=== PATIENT | male | born 1945 | race Caucasian/White ===

== ENCOUNTER 2017-10-14 05:31 | Inpatient (IN) | payer MEDICARE, MEDICAID ==
[2017-10-11 15:57] LABS: BASOPHILS % (AUTO) 0.7 % (0-1); EOSINOPHILS # (AUTO) 0.1 X10'3 (0-0.9); EOSINOPHILS % (AUTO) 1.9 % (0-6); LYMPHOCYTES # (AUTO) 1.3 X10'3 (1.1-4.8); MEAN CORPUSCULAR HEMOGLOBIN 30.5 PG (27.0-31.0); MEAN CORPUSCULAR HGB CONC 34.2 % (33.0-36.5); MEAN CORPUSCULAR VOLUME 89.4 FL (78-98); MEAN PLATELET VOLUME 9.8 FL (7.4-10.4); MONOCYTES # (AUTO) 0.5 X10'3 (0-0.9); MONOCYTES % (AUTO) 8.7 % (2-12); NEUTROPHILS # (AUTO) 3.8 X10'3 (1.8-7.7); NEUTROPHILS % (AUTO) 65.7 % (42-75); PRE OP HEMATOCRIT 41.2 % (42.0-52.0); PRE OP HEMOGLOBIN 14.1 g/dL (14.0-17.9); PRE OP PLATELET COUNT 163 X10'3 (140-440); RED BLOOD COUNT 4.61 X10'6 (4.70-6.10); RED CELL DISTRIBUTION WIDTH 14.5 % (11.5-14.5)
[2017-10-11 16:05] LABS: PRE OP PROTIME 10.6 SECONDS (9.0-12.0)
[2017-10-11 16:06] LABS: HEMOGLOBIN A1C 5.3 % (4.5-6.2)
[2017-10-11 16:13] LABS: ALBUMIN 3.8 G/DL (3.4-5.0); ALBUMIN/GLOBULIN RATIO 1.1 (1.1-1.5); ALKALINE PHOSPHATASE 75 IU/L (46-116); BLOOD UREA NITROGEN 14 MG/DL (7-18); BUN/CREATININE RATIO 14.9 (5.4-32.0); CALCIUM 9.3 MG/DL (8.5-10.1); CHLORIDE 102 MMOL/L (99-107); CREATININE 0.94 MG/DL (0.60-1.10); PRE OP ALT 28 U/L (30-65); PRE OP ANION GAP 8 (8-16); PRE OP AST 20 U/L (10-37); PRE OP BILIRUB, TOTAL 0.6 MG/DL (0.0-1.0); PRE OP GLUCOSE 75 MG/DL (70-104); PRE OP POTASSIUM 3.8 MMOL/L (3.4-5.1); PRE OP SODIUM 141 MMOL/L (135-145); TOTAL CARBON DIOXIDE 30.8 MMOL/L (24-32); TOTAL PROTEIN 7.4 G/DL (6.4-8.2); eGFR 79 ML/MIN
[2017-10-11 16:18] LABS: CLARITY,URINE Clear (Clear); COLOR,URINE Yellow (Yellow); GLUCOSE, URINE Negative (Neg); KETONES,URINE Negative (Neg); LEUKOCYTE ESTERASE ,URINE Negative (Neg); NITRITES, URINE Negative (Neg); OCCULT BLOOD,URINE Negative (Neg); PROTEIN,URINE Negative (Neg)
[2017-10-11 16:20] LABS: UA COLLECTION TYPE CLN CATCH MIDSTREAM
[2017-10-14] VITALS (21 sets, daily range): BP systolic 98–132; BP diastolic 50–73
[~2017-10-14] VITALS: Ht 175.3 cm; Wt 90.3 kg
[~2017-10-14 05:31] MED LIST: AMLO10TA4 PO; ASPI81TA52 PO; ATOR20TA PO; DOCUMENT DATE & TIME OF BETA-BLOCKER PO ONE; HYDR25TA4 PO; METO-539 PO; NITR0.4T51 SL; VANCOMYCIN INJ 1000 MG in NORMAL SALINE 250ml IV.SOLN IV ONE; cefazolin/dext.iso 2gm/50ml 50 ML IV ONE; famotidine 20mg tablet PO ONE; ringers solution, lacted 1,000 ML IV SCH
[2017-10-14 05:35] LABS: ABG BASE EXCESS 2.9 mmol/L (-2.0-3.0); ABG HCO3 26.2 mmol/L (22.0-26.0); ABG OXYGEN SATURATION 97.4 % (95-98); ABG PCO2 (T) 36.2 mmHg (35.0-48.0); ABG PH (T) 7.477 (7.350-7.450); ABG PO2 (T) 88.8 mmHg (83-108); ALLEN'S TEST Positive; FCOHb 0.6 % (0.5-1.5); FMetHb 0.1 % (0.3-1.12); FO2Hb 96.7 % (94-100); TOTAL HEMOGLOBIN 14.9 G/dl (14.0-18.0)
[2017-10-14] MEDS ORDERED: insulin regular, human 100 UNITS in normal saline 100ml IV soln 99 ML IV SCH ×2 (06:00)
[2017-10-14] MEDS ORDERED: LORazepam 2 mg/ml vial IV ONE (06:00)
[2017-10-14] MEDS ORDERED: LIDOcaine 1% (10mg/ml) 2ml vial ONE (06:07)
[2017-10-14] MEDS ORDERED: metoprolol tartrate 12.5mg (1/2 tablet) PO ONE (06:30)
[2017-10-14] MEDS ORDERED: papaverine 30 mg/ml 2ml inj. IA ONE (06:30)
[2017-10-14] MEDS ORDERED: heparin 10,000 units/1 ML INJ IR ONE (06:30)
[2017-10-14] MEDS: mupirocin 2% ointment 22GM TP SCH ×2 (06:31→08:00)
[2017-10-14] MEDS ORDERED: propofol inj 20 ML IV ONE (07:01)
[2017-10-14] MEDS ORDERED: rocuronium 10mg/ml inj IV ONE ×4 (07:01→11:39)
[2017-10-14] MEDS ORDERED: MIDAZolam 1mg/ml 10ml vial ONE (07:01)
[2017-10-14] MEDS ORDERED: SUFENTANIL CITRATE 50 MCG/ML 2ml ampule IV ONE (07:01)
[2017-10-14] MEDS ORDERED: DOPamine/D5W 400mg/250ml bag IV ONE (07:02)
[2017-10-14] MEDS ORDERED: niCARdipine 2.5mg/ml inj IV ONE (07:02)
[2017-10-14] MEDS ORDERED: papaverine 30 mg/ml 2ml inj. ONE (07:02)
[2017-10-14] MEDS ORDERED: sevoflurane 250ml liquid IH ONE (07:02)
[2017-10-14] MEDS ORDERED: heparin 10,000 units/1 ML INJ ONE ×2 (07:02→08:00)
[2017-10-14] MEDS ORDERED: aminocaproic acid 250 MG/1 ML inj. ONE ×2 (07:02→08:00)
[2017-10-14] MEDS ORDERED: methylPREDNISolone sod. succ. 500mg inj ONE (08:00)
[2017-10-14] MEDS ORDERED: LIDOcaine 2% (20 mg/ml) 5ml cardiac syringe ONE (08:00)
[2017-10-14] MEDS ORDERED: heparin 1,000 units/ml 10ml inj ONE (08:00)
[2017-10-14] MEDS ORDERED: sodium bicarbonate (8.4%) 1 mEq/ml syringe ONE (08:00)
[2017-10-14] MEDS ORDERED: potassium Cl 2 mEq/ml inj IV ONE (08:00)
[2017-10-14] MEDS ORDERED: phenylephrine 10mg/ml inj IV ONE (08:00)
[2017-10-14] MEDS ORDERED: albumin (human) 25% 100 ML IV solution IV ONE (08:00)
[2017-10-14] MEDS ORDERED: magnesium 1 GM/2 ML inj ONE (08:00)
[2017-10-14] MEDS ORDERED: calcium chloride 100 MG/1 ML inj IV ONE (08:00)
[2017-10-14 08:25] LABS: ABG BASE EXCESS 0.9 mmol/L (-2.0-3.0); ABG HCO3 25.9 mmol/L (22.0-26.0); ABG OXYGEN SATURATION 98.7 % (95-98); ABG PCO2 42.6 mmHg (35.0-45.0); ABG PH 7.401 (7.350-7.450); ABG PO2 158.8 mmHg (60.0-100.0); CL (ABG) 103 mmol/L (99-107); FCOHb 0.3 % (0.5-1.5); FO2Hb 98.4 % (94-100); GLUCOSE (ABG) 108 mg/dl (70-105); IONIZED CA (ABG) 1.13 mmol/L (1.03-1.32); K (ABG) 3.4 mmol/L (3.3-5.1); NA (ABG) 137 mmol/L (135-145); TOTAL HEMOGLOBIN 12.4 G/dl (14.0-18.0)
[2017-10-14 09:35] LABS: ABG BASE EXCESS 1.6 mmol/L (-2.0-3.0); ABG HCO3 24.4 mmol/L (22.0-26.0); ABG OXYGEN SATURATION 99.1 % (95-98); ABG PCO2 32.2 mmHg (35.0-45.0); ABG PH 7.498 (7.350-7.450); ABG PO2 385.9 mmHg (60.0-100.0); CL (ABG) 104 mmol/L (99-107); FCOHb 0.2 % (0.5-1.5); FMetHb 0.2 % (0.3-1.12); FO2Hb 98.7 % (94-100); GLUCOSE (ABG) 103 mg/dl (70-105); IONIZED CA (ABG) 1.02 mmol/L (1.03-1.32); K (ABG) 4.7 mmol/L (3.3-5.1); NA (ABG) 135 mmol/L (135-145); TOTAL HEMOGLOBIN 10.2 G/dl (14.0-18.0)
[2017-10-14 09:46] LABS: ACT @ 1.70 U 321 SEC (193-297); ACT @ 2.84 U 435 SEC (260-420); BASELINE ACT 150 SEC (101-148); PATIENT WEIGHT 82.0k KG
[2017-10-14 10:15] LABS: ABG BASE EXCESS VENOUS 1.2 mmol/L; ABG HCO3 VENOUS 25.7 mmol/L; ABG PCO2 VENOUS 39.9 mmHg; ABG PO2 VENOUS 63.8 mmHg; CL (ABG) 105 mmol/L (99-107); FCOHb VENOUS 0.3 %; FHHb VENOUS 8.1 %; FMetHb VENOUS 0.4 %; FO2Hb VENOUS 91.2 %; GLUCOSE (ABG) 129 mg/dl (70-105); IONIZED CA (ABG) 1.07 mmol/L (1.03-1.32); K (ABG) 4.6 mmol/L (3.3-5.1); NA (ABG) 135 mmol/L (135-145); TOTAL HEMOGLOBIN 10.6 G/dl (14.0-18.0)
[2017-10-14 10:45] LABS: ABG BASE EXCESS -0.2 mmol/L (-2.0-3.0); ABG HCO3 26.7 mmol/L (22.0-26.0); ABG OXYGEN SATURATION 98.9 % (95-98); ABG PCO2 54.4 mmHg (35.0-45.0); ABG PH 7.308 (7.350-7.450); ABG PO2 283.8 mmHg (60.0-100.0); CL (ABG) 105 mmol/L (99-107); FCOHb 0.3 % (0.5-1.5); FMetHb 0.4 % (0.3-1.12); FO2Hb 98.2 % (94-100); GLUCOSE (ABG) 168 mg/dl (70-105); K (ABG) 4.7 mmol/L (3.3-5.1); NA (ABG) 136 mmol/L (135-145); TOTAL HEMOGLOBIN 10.8 G/dl (14.0-18.0)
[2017-10-14 11:05] LABS: ABG BASE EXCESS -2.8 mmol/L (-2.0-3.0); ABG HCO3 21.2 mmol/L (22.0-26.0); ABG OXYGEN SATURATION 98.9 % (95-98); ABG PCO2 34.1 mmHg (35.0-45.0); ABG PH 7.412 (7.350-7.450); ABG PO2 309.4 mmHg (60.0-100.0); CL (ABG) 104 mmol/L (99-107); FCOHb 0.3 % (0.5-1.5); FMetHb 0.4 % (0.3-1.12); FO2Hb 98.2 % (94-100); GLUCOSE (ABG) 167 mg/dl (70-105); IONIZED CA (ABG) 1.07 mmol/L (1.03-1.32); K (ABG) 4.6 mmol/L (3.3-5.1); NA (ABG) 133 mmol/L (135-145); TOTAL HEMOGLOBIN 10.3 G/dl (14.0-18.0)
[2017-10-14 11:36] LABS: ABG HCO3 22.7 mmol/L (22.0-26.0); ABG OXYGEN SATURATION 98.8 % (95-98); ABG PCO2 33.9 mmHg (35.0-45.0); ABG PH 7.443 (7.350-7.450); ABG PO2 244.1 mmHg (60.0-100.0); CL (ABG) 104 mmol/L (99-107); FCOHb 0.3 % (0.5-1.5); FMetHb 0.6 % (0.3-1.12); FO2Hb 97.9 % (94-100); GLUCOSE (ABG) 167 mg/dl (70-105); IONIZED CA (ABG) 1.09 mmol/L (1.03-1.32); K (ABG) 4.3 mmol/L (3.3-5.1); NA (ABG) 137 mmol/L (135-145); TOTAL HEMOGLOBIN 10.4 G/dl (14.0-18.0)
[2017-10-14] MEDS ORDERED: ceFAZolin 1000mg inj ONE (11:39)
[2017-10-14 12:01] LABS: ABG BASE EXCESS 3.6 mmol/L (-2.0-3.0); ABG HCO3 27.4 mmol/L (22.0-26.0); ABG PCO2 38.2 mmHg (35.0-45.0); ABG PH 7.473 (7.350-7.450); ABG PO2 140.6 mmHg (60.0-100.0); CL (ABG) 103 mmol/L (99-107); FCOHb 0.3 % (0.5-1.5); FMetHb 0.5 % (0.3-1.12); FO2Hb 97.2 % (94-100); GLUCOSE (ABG) 162 mg/dl (70-105); IONIZED CA (ABG) 1.24 mmol/L (1.03-1.32); K (ABG) 4.3 mmol/L (3.3-5.1); NA (ABG) 137 mmol/L (135-145); TOTAL HEMOGLOBIN 9.6 G/dl (14.0-18.0)
[2017-10-14 12:31] LABS: ABG BASE EXCESS VENOUS 1.6 mmol/L; ABG HCO3 VENOUS 26.3 mmol/L; ABG PCO2 VENOUS 41.5 mmHg; ABG PO2 VENOUS 52.6 mmHg; CL (ABG) 106 mmol/L (99-107); FCOHb VENOUS 0.3 %; FHHb VENOUS 14.3 %; FMetHb VENOUS 0.6 %; FO2Hb VENOUS 84.8 %; GLUCOSE (ABG) 145 mg/dl (70-105); IONIZED CA (ABG) 1.24 mmol/L (1.03-1.32); K (ABG) 3.8 mmol/L (3.3-5.1); NA (ABG) 138 mmol/L (135-145)
[2017-10-14 12:46] LABS: ACTIVATED CLOTTING TIME 110 SEC (101-148)
[2017-10-14] MEDS: niCARDipine/sod cl 20mg/200ml 200 ML IV SCH ×3 (13:22→20:59)
[2017-10-14] MEDS ORDERED: nitroGLYCERIN-Tridil 50MG/D5W 250 ML IV PRN (13:22)
[2017-10-14] MEDS ORDERED: DOPamine 400mg/D5W 250ml 250 ML IV PRN (13:22)
[2017-10-14] MEDS ORDERED: normal saline 250ml IV soln 250 ML IV PRN (13:25)
[2017-10-14] MEDS ORDERED: sodium phosphate inj. 30 MMOL in dextrose 5%-water 250 ML IV PRN (13:25)
[2017-10-14] MEDS ORDERED: dextrose 50%-water 50ml dispensing syringe IV PRN (13:25)
[2017-10-14] MEDS ORDERED: ondansetron/PF 4mg/2ml inj IV PRN (13:25)
[2017-10-14] MEDS ORDERED: sodium phosphate inj. 15 MMOL in dextrose 5%-water 150 ML IV PRN (13:25)
[2017-10-14] MEDS ORDERED: acetaminophen 325mg tablet PO PRN (13:25)
[2017-10-14] MEDS: insulin regular, human inj. 100 UNITS in normal saline 100ml IV soln 100 ML IV SCH ×2 (13:25)
[2017-10-14] MEDS ORDERED: metoclopramide 5 mg/ml inj IV PRN (13:25)
[2017-10-14] MEDS ORDERED: Neutra Phos packet PO PRN (13:25)
[2017-10-14] MEDS ORDERED: magnesium 4gm in 100ml NS 100 ML IV PRN (13:25)
[2017-10-14] MEDS ORDERED: magnesium hydroxide 30ml (MOM) UD suspension PO PRN (13:25)
[2017-10-14 13:41] LABS: ABG BASE EXCESS -1.3 mmol/L (-2.0-3.0); ABG OXYGEN SATURATION 95.5 % (95-98); ABG PCO2 (T) 31.1 mmHg (35.0-48.0); ABG PH (T) 7.463 (7.350-7.450); FCOHb 0.3 % (0.5-1.5); FMetHb 0.1 % (0.3-1.12); FO2Hb 95.1 % (94-100); PATIENT TEMPERATURE 36.1; PEEP 5 cm H2O; RESPIRATORY RATE 12 b/min; TIDAL VOLUME 600 mL; TOTAL HEMOGLOBIN 12.8 G/dl (14.0-18.0)
[2017-10-14 13:47] LABS: BASOPHILS % (AUTO) 0.1 % (0-1); EOSINOPHILS # (AUTO) 0.1 X10'3 (0-0.9); EOSINOPHILS % (AUTO) 1.3 % (0-6); HEMOGLOBIN 12.4 g/dl (14.0-17.9); LYMPHOCYTES # (AUTO) 0.5 X10'3 (1.1-4.8); MEAN CORPUSCULAR HEMOGLOBIN 30.6 PG (27.0-31.0); MEAN CORPUSCULAR HGB CONC 34.3 % (33.0-36.5); MEAN CORPUSCULAR VOLUME 89.3 FL (78-98); MONOCYTES # (AUTO) 0.3 X10'3 (0-0.9); MONOCYTES % (AUTO) 3.2 % (2-12); NEUTROPHILS % (AUTO) 90.4 % (42-75); PLATELET COUNT 99 X10'3 (140-440); RED BLOOD COUNT 4.03 X10'6 (4.70-6.10); RED CELL DISTRIBUTION WIDTH 14.4 % (11.5-14.5); WHITE BLOOD COUNT 9.9 X10'3 (4.5-11.0)
[2017-10-14 14:02] LABS: ALANINE AMINOTRANSFERASE 24 U/L (12-78); ALBUMIN 2.8 G/DL (3.4-5.0); ALBUMIN/GLOBULIN RATIO 1.2 (1.1-1.5); ALKALINE PHOSPHATASE 55 IU/L (46-116); ANION GAP 7 (8-16); ASPARTATE AMINO TRANSFERASE 48 U/L (10-37); BILIRUBIN,TOTAL 0.6 MG/DL (0.1-1.0); BLOOD UREA NITROGEN 24 MG/DL (7-18); BUN/CREATININE RATIO 23.8 (5.4-32.0); CALCIUM 9.9 MG/DL (8.5-10.1); CHLORIDE 111 MMOL/L (99-107); CREATININE 1.01 MG/DL (0.60-1.10); GLUCOSE 117 MG/DL (70-104); MAGNESIUM 2.9 MG/DL (1.5-2.4); POTASSIUM 3.2 MMOL/L (3.5-5.1); SODIUM 146 MMOL/L (135-145); TOTAL CARBON DIOXIDE 27.6 MMOL/L (24-32); TOTAL PROTEIN 5.1 G/DL (6.4-8.2); eGFR 72 ML/MIN
[2017-10-14] MEDS: albumin (Human) 5% 250ml 250 ML IV PRN ×3 (14:30→16:37)
[2017-10-14] MEDS: sodium chloride 0.45% 1,000 ML IV SCH (14:31)
[2017-10-14] MEDS: morphine sulfate 8 MG/ML SYRINGE IV PRN ×4 (15:48→23:05)
[2017-10-14] MEDS: CEFAZOLIN SODIUM/NORMAL SALINE 100 ML IV SCH (16:15)
[2017-10-14 16:45] LABS: INR 1.2 INR; PARTIAL THROMBOPLASTIN TIME 28 SECONDS (22-32)
[2017-10-14] MEDS: insulin Lispro (HumaLOG) vial - multi-dose SQ SCH (16:53)
[2017-10-14 17:16] LABS: BASOPHILS % (AUTO) 0 % (0-1); EOSINOPHILS # (AUTO) 0.2 X10'3 (0-0.9); EOSINOPHILS % (AUTO) 1.8 % (0-6); HEMATOCRIT 31.3 % (42.0-52.0); HEMOGLOBIN 10.6 g/dl (14.0-17.9); LYMPHOCYTES # (AUTO) 0.5 X10'3 (1.1-4.8); LYMPHOCYTES % (AUTO) 3.8 % (21-51); MEAN CORPUSCULAR HEMOGLOBIN 30.3 PG (27.0-31.0); MEAN CORPUSCULAR HGB CONC 33.9 % (33.0-36.5); MEAN CORPUSCULAR VOLUME 89.3 FL (78-98); MEAN PLATELET VOLUME 8.9 FL (7.4-10.4); MONOCYTES # (AUTO) 0.6 X10'3 (0-0.9); MONOCYTES % (AUTO) 4.9 % (2-12); NEUTROPHILS # (AUTO) 10.7 X10'3 (1.8-7.7); NEUTROPHILS % (AUTO) 89.5 % (42-75); PLATELET COUNT 94 X10'3 (140-440); RED CELL DISTRIBUTION WIDTH 14.2 % (11.5-14.5); WHITE BLOOD COUNT 11.9 X10'3 (4.5-11.0)
[2017-10-14 17:46] LABS: INR 1.2 INR; PARTIAL THROMBOPLASTIN TIME 28 SECONDS (22-32)
[2017-10-14] MEDS: potassium Cl 20mEq/100mL bag 100 ML IV PRN ×3 (18:40→23:17)
[2017-10-14] MEDS: docusate sod 100mg capsule PO SCH (20:00)
[2017-10-14] MEDS: vancomycin/NS 1 GM ADD-VANTAGE 250 ML IV SCH (20:01)
[2017-10-14] MEDS: mupirocin 2% ointment 22GM NS SCH (20:01)
[2017-10-14 20:24] LABS: BASOPHILS % (AUTO) 0 % (0-1); EOSINOPHILS # (AUTO) 0.1 X10'3 (0-0.9); EOSINOPHILS % (AUTO) 1.5 % (0-6); HEMATOCRIT 25.9 % (42.0-52.0); HEMOGLOBIN 8.8 g/dl (14.0-17.9); LYMPHOCYTES # (AUTO) 0.3 X10'3 (1.1-4.8); LYMPHOCYTES % (AUTO) 2.5 % (21-51); MEAN CORPUSCULAR HEMOGLOBIN 30.6 PG (27.0-31.0); MEAN PLATELET VOLUME 7.9 FL (7.4-10.4); MONOCYTES # (AUTO) 0.4 X10'3 (0-0.9); MONOCYTES % (AUTO) 4.4 % (2-12); NEUTROPHILS # (AUTO) 9.3 X10'3 (1.8-7.7); NEUTROPHILS % (AUTO) 91.6 % (42-75); PLATELET COUNT 124 X10'3 (140-440); RED BLOOD COUNT 2.88 X10'6 (4.70-6.10); RED CELL DISTRIBUTION WIDTH 14.3 % (11.5-14.5); WHITE BLOOD COUNT 10.1 X10'3 (4.5-11.0)
[2017-10-14 20:31] LABS: ALBUMIN 3.3 G/DL (3.4-5.0); ANION GAP 12 (8-16); BLOOD UREA NITROGEN 22 MG/DL (7-18); BUN/CREATININE RATIO 18.8 (5.4-32.0); CALCIUM 8.3 MG/DL (8.5-10.1); CHLORIDE 114 MMOL/L (99-107); CREATININE 1.17 MG/DL (0.60-1.10); GLUCOSE 164 MG/DL (70-104); PHOSPHORUS 2.8 MG/DL (2.3-4.5); POTASSIUM 3.8 MMOL/L (3.5-5.1); SODIUM 149 MMOL/L (135-145); TOTAL CARBON DIOXIDE 23.3 MMOL/L (24-32); eGFR 61 ML/MIN
[2017-10-15] VITALS (25 sets, daily range): BP systolic 100–134; BP diastolic 50–71
[2017-10-15] MEDS: niCARDipine/sod cl 20mg/200ml 200 ML IV SCH ×6 (01:22→21:22)
[2017-10-15 02:12] LABS: INR 1.1 INR; PARTIAL THROMBOPLASTIN TIME 26 SECONDS (22-32); PROTHROMBIN TIME 10.9 SECONDS (9.0-12.0)
[2017-10-15 02:13] LABS: BASOPHILS % (AUTO) 0 % (0-1); EOSINOPHILS % (AUTO) 0 % (0-6); HEMATOCRIT 24.3 % (42.0-52.0); HEMOGLOBIN 8.6 g/dl (14.0-17.9); LYMPHOCYTES # (AUTO) 0.3 X10'3 (1.1-4.8); LYMPHOCYTES % (AUTO) 3.5 % (21-51); MEAN CORPUSCULAR HEMOGLOBIN 31.6 PG (27.0-31.0); MEAN CORPUSCULAR HGB CONC 35.5 % (33.0-36.5); MEAN PLATELET VOLUME 8.9 FL (7.4-10.4); MONOCYTES # (AUTO) 0.6 X10'3 (0-0.9); MONOCYTES % (AUTO) 6.5 % (2-12); NEUTROPHILS # (AUTO) 8.8 X10'3 (1.8-7.7); PLATELET COUNT 107 X10'3 (140-440); RED BLOOD COUNT 2.73 X10'6 (4.70-6.10); RED CELL DISTRIBUTION WIDTH 13.8 % (11.5-14.5); WHITE BLOOD COUNT 9.7 X10'3 (4.5-11.0)
[2017-10-15 02:18] LABS: ALANINE AMINOTRANSFERASE 25 U/L (12-78); ALBUMIN 3.2 G/DL (3.4-5.0); ALBUMIN/GLOBULIN RATIO 1.3 (1.1-1.5); ALKALINE PHOSPHATASE 37 IU/L (46-116); ANION GAP 5 (8-16); ASPARTATE AMINO TRANSFERASE 64 U/L (10-37); BILIRUBIN,TOTAL 0.5 MG/DL (0.1-1.0); BLOOD UREA NITROGEN 23 MG/DL (7-18); BUN/CREATININE RATIO 26.7 (5.4-32.0); CALCIUM 8.3 MG/DL (8.5-10.1); CHLORIDE 116 MMOL/L (99-107); CREATININE 0.86 MG/DL (0.60-1.10); GLUCOSE 127 MG/DL (70-104); MAGNESIUM 2.8 MG/DL (1.5-2.4); PHOSPHORUS 2.7 MG/DL (2.3-4.5); SODIUM 149 MMOL/L (135-145); TOTAL CARBON DIOXIDE 28.2 MMOL/L (24-32); TOTAL PROTEIN 5.6 G/DL (6.4-8.2); eGFR 87 ML/MIN
[2017-10-15] MEDS ORDERED: potassium Cl 20mEq/100mL bag 200 ML IV ONE (02:58)
[2017-10-15 05:11] LABS: ABG BASE EXCESS -3.3 mmol/L (-2.0-3.0); ABG OXYGEN SATURATION 95.1 % (95-98); ABG PCO2 (T) 35.6 mmHg (35.0-48.0); ABG PH (T) 7.391 (7.350-7.450); ABG PO2 (T) 88.9 mmHg (83-108); FCOHb 0.3 % (0.5-1.5); FMetHb 0.1 % (0.3-1.12); FO2Hb 94.7 % (94-100); MINUTE VOLUME 8 L/min; PATIENT TEMPERATURE 37.4; PEEP 5 cm H2O; RESPIRATORY RATE (OBSERVED) 12 b/min; TOTAL HEMOGLOBIN 8.8 G/dl (14.0-18.0)
[2017-10-15] MEDS: CEFAZOLIN SODIUM/NORMAL SALINE 100 ML IV SCH ×3 (07:12→15:36)
[2017-10-15] MEDS: mupirocin 2% ointment 22GM NS SCH ×2 (07:12→20:39)
[2017-10-15] MEDS: pantoprazole 40mg Tablet.DR PO SCH (07:12)
[2017-10-15] MEDS: atorvastatin 10mg tablet PO SCH (07:12)
[2017-10-15] MEDS: aspirin 325mg tablet, delayed-release (Ecotrin) PO SCH (07:13)
[2017-10-15] MEDS: docusate sod 100mg capsule PO SCH ×2 (07:13→20:39)
[2017-10-15] MEDS: metoprolol tartrate 12.5mg (1/2 tablet) PO SCH ×2 (08:00→20:00)
[2017-10-15] MEDS: HYDROcodone/acetaminophen 10/325mg tab PO PRN ×2 (08:07→13:10)
[2017-10-15] MEDS: vancomycin/NS 1 GM ADD-VANTAGE 250 ML IV SCH ×2 (08:08→20:39)
[2017-10-15 08:38] LABS: MAGNESIUM 2.4 MG/DL (1.5-2.4); POTASSIUM 4.2 MMOL/L (3.5-5.1)
[2017-10-15] MEDS: insulin Lispro (HumaLOG) vial - multi-dose SQ SCH (09:25)
[2017-10-15] MEDS: magnesium 2GM in 50ml NS 50 ML IV PRN (10:06)
[2017-10-15] MEDS: potassium Cl 20mEq/100mL bag 100 ML IV PRN ×2 (11:57→15:35)
[2017-10-15] MEDS: insulin regular, human inj. 100 UNITS in normal saline 100ml IV soln 100 ML IV SCH ×2 (12:19)
[2017-10-15 14:25] LABS: MAGNESIUM 2.8 MG/DL (1.5-2.4); POTASSIUM 4.1 MMOL/L (3.5-5.1)
[2017-10-15] MEDS: lactobacillus rhamnosus 10,000 MMU CELLS/CAPSULE PO SCH (17:20)
[2017-10-16] VITALS (24 sets, daily range): BP systolic 92–141; BP diastolic 55–82
[2017-10-16] MEDS: HYDROcodone/acetaminophen 10/325mg tab PO PRN ×5 (00:30→21:58)
[2017-10-16] MEDS: CEFAZOLIN SODIUM/NORMAL SALINE 100 ML IV SCH (00:33)
[2017-10-16] MEDS: niCARDipine/sod cl 20mg/200ml 200 ML IV SCH ×6 (01:22→21:22)
[2017-10-16 04:46] LABS: BASOPHILS % (AUTO) 0.1 % (0-1); EOSINOPHILS # (AUTO) 0.1 X10'3 (0-0.9); EOSINOPHILS % (AUTO) 1.4 % (0-6); HEMOGLOBIN 7.3 g/dl (14.0-17.9); LYMPHOCYTES # (AUTO) 0.5 X10'3 (1.1-4.8); LYMPHOCYTES % (AUTO) 6.3 % (21-51); MEAN CORPUSCULAR HEMOGLOBIN 30.7 PG (27.0-31.0); MEAN CORPUSCULAR VOLUME 90.4 FL (78-98); MONOCYTES # (AUTO) 0.8 X10'3 (0-0.9); MONOCYTES % (AUTO) 9.5 % (2-12); NEUTROPHILS # (AUTO) 6.8 X10'3 (1.8-7.7); NEUTROPHILS % (AUTO) 82.7 % (42-75); PLATELET COUNT 76 X10'3 (140-440); RED BLOOD COUNT 2.38 X10'6 (4.70-6.10); RED CELL DISTRIBUTION WIDTH 15.5 % (11.5-14.5); WHITE BLOOD COUNT 8.2 X10'3 (4.5-11.0)
[2017-10-16 04:56] LABS: ALBUMIN 2.8 G/DL (3.4-5.0); ANION GAP 3 (8-16); BLOOD UREA NITROGEN 25 MG/DL (7-18); BUN/CREATININE RATIO 30.9 (5.4-32.0); CALCIUM 7.9 MG/DL (8.5-10.1); CHLORIDE 111 MMOL/L (99-107); CREATININE 0.81 MG/DL (0.60-1.10); GLUCOSE 135 MG/DL (70-104); MAGNESIUM 2.4 MG/DL (1.5-2.4); PHOSPHORUS 2.5 MG/DL (2.3-4.5); POTASSIUM 4.2 MMOL/L (3.5-5.1); SODIUM 143 MMOL/L (135-145); TOTAL CARBON DIOXIDE 29.4 MMOL/L (24-32); eGFR > 90 ML/MIN
[2017-10-16 04:59] LABS: HEMATOCRIT 21.5 % (42.0-52.0)
[2017-10-16] MEDS: potassium Cl 20mEq/100mL bag 100 ML IV PRN ×4 (07:16→22:42)
[2017-10-16] MEDS: docusate sod 100mg capsule PO SCH ×2 (07:17→20:08)
[2017-10-16] MEDS: atorvastatin 10mg tablet PO SCH (07:17)
[2017-10-16] MEDS: lactobacillus rhamnosus 10,000 MMU CELLS/CAPSULE PO SCH ×2 (07:17→17:25)
[2017-10-16] MEDS: aspirin 325mg tablet, delayed-release (Ecotrin) PO SCH (07:17)
[2017-10-16] MEDS: metoprolol tartrate 12.5mg (1/2 tablet) PO SCH ×2 (07:17→20:08)
[2017-10-16] MEDS: mupirocin 2% ointment 22GM NS SCH (07:18)
[2017-10-16] MEDS: pantoprazole 40mg Tablet.DR PO SCH (07:18)
[2017-10-16] MEDS ORDERED: furosemide 40mg/4ml inj IV ONE (07:20)
[2017-10-16 09:57] LABS: HEMATOCRIT 27.1 % (42.0-52.0); HEMOGLOBIN 9.1 g/dl (14.0-17.9); MEAN CORPUSCULAR HEMOGLOBIN 30.1 PG (27.0-31.0); MEAN CORPUSCULAR HGB CONC 33.6 % (33.0-36.5); MEAN CORPUSCULAR VOLUME 89.5 FL (78-98); MEAN PLATELET VOLUME 9.3 FL (7.4-10.4); PLATELET COUNT 101 X10'3 (140-440); RED BLOOD COUNT 3.03 X10'6 (4.70-6.10); RED CELL DISTRIBUTION WIDTH 14.9 % (11.5-14.5); WHITE BLOOD COUNT 11.3 X10'3 (4.5-11.0)
[2017-10-16] MEDS: sodium chloride 0.45% 1,000 ML IV SCH (13:22)
[2017-10-16] MEDS: insulin regular, human inj. 100 UNITS in normal saline 100ml IV soln 100 ML IV SCH ×2 (13:23)
[2017-10-17] VITALS (24 sets, daily range): BP systolic 95–135; BP diastolic 57–75
[2017-10-17] MEDS: niCARDipine/sod cl 20mg/200ml 200 ML IV SCH ×6 (01:22→21:22)
[2017-10-17 02:49] LABS: BASOPHILS % (AUTO) 0.3 % (0-1); EOSINOPHILS # (AUTO) 0.1 X10'3 (0-0.9); EOSINOPHILS % (AUTO) 1.2 % (0-6); HEMATOCRIT 23.9 % (42.0-52.0); HEMOGLOBIN 8.2 g/dl (14.0-17.9); LYMPHOCYTES # (AUTO) 0.8 X10'3 (1.1-4.8); LYMPHOCYTES % (AUTO) 9.6 % (21-51); MEAN CORPUSCULAR HEMOGLOBIN 30.5 PG (27.0-31.0); MEAN CORPUSCULAR HGB CONC 34.1 % (33.0-36.5); MEAN CORPUSCULAR VOLUME 89.4 FL (78-98); MEAN PLATELET VOLUME 9.6 FL (7.4-10.4); MONOCYTES # (AUTO) 0.8 X10'3 (0-0.9); MONOCYTES % (AUTO) 9.3 % (2-12); NEUTROPHILS # (AUTO) 6.8 X10'3 (1.8-7.7); NEUTROPHILS % (AUTO) 79.6 % (42-75); PLATELET COUNT 75 X10'3 (140-440); RED BLOOD COUNT 2.67 X10'6 (4.70-6.10); RED CELL DISTRIBUTION WIDTH 15.5 % (11.5-14.5); WHITE BLOOD COUNT 8.6 X10'3 (4.5-11.0)
[2017-10-17 02:59] LABS: ALBUMIN 2.7 G/DL (3.4-5.0); ANION GAP 5 (8-16); BLOOD UREA NITROGEN 23 MG/DL (7-18); BUN/CREATININE RATIO 30.7 (5.4-32.0); CALCIUM 7.8 MG/DL (8.5-10.1); CHLORIDE 107 MMOL/L (99-107); CREATININE 0.75 MG/DL (0.60-1.10); GLUCOSE 107 MG/DL (70-104); MAGNESIUM 2.1 MG/DL (1.5-2.4); PHOSPHORUS 2.1 MG/DL (2.3-4.5); POTASSIUM 4.3 MMOL/L (3.5-5.1); SODIUM 139 MMOL/L (135-145); TOTAL CARBON DIOXIDE 26.8 MMOL/L (24-32); eGFR > 90 ML/MIN
[2017-10-17] MEDS: potassium Cl 20mEq/100mL bag 100 ML IV ONE ×2 (03:23→03:25)
[2017-10-17] MEDS: potassium Cl 20mEq/100mL bag 100 ML IV PRN ×3 (03:26→22:25)
[2017-10-17] MEDS: lactobacillus rhamnosus 10,000 MMU CELLS/CAPSULE PO SCH ×2 (08:19→17:50)
[2017-10-17] MEDS: docusate sod 100mg capsule PO SCH ×2 (08:19→20:20)
[2017-10-17] MEDS: metoprolol tartrate 12.5mg (1/2 tablet) PO SCH ×2 (08:19→20:20)
[2017-10-17] MEDS: pantoprazole 40mg Tablet.DR PO SCH (08:19)
[2017-10-17] MEDS: atorvastatin 10mg tablet PO SCH (08:19)
[2017-10-17] MEDS: aspirin 325mg tablet, delayed-release (Ecotrin) PO SCH (08:20)
[2017-10-17] MEDS: insulin regular, human inj. 100 UNITS in normal saline 100ml IV soln 100 ML IV SCH ×2 (13:25)
[2017-10-17] MEDS: HYDROcodone/acetaminophen 10/325mg tab PO PRN (14:18)
[2017-10-17] MEDS ORDERED: amiodarone 150mg/dext, iso-os 100 ML IV ONE (15:15)
[2017-10-17] MEDS: amiodarone/D5 360MG/200ML BAG 200 ML IV SCH ×2 (15:29→21:31)
[2017-10-17] MEDS: magnesium 2GM in 50ml NS 50 ML IV PRN (16:18)
[2017-10-17 20:49] LABS: MAGNESIUM 2.5 MG/DL (1.5-2.4); POTASSIUM 4.3 MMOL/L (3.5-5.1)
[2017-10-18] VITALS (23 sets, daily range): BP systolic 105–150; BP diastolic 53–82
[2017-10-18] MEDS: niCARDipine/sod cl 20mg/200ml 200 ML IV SCH ×6 (01:22→21:22)
[2017-10-18] MEDS: sodium chloride 0.45% 1,000 ML IV SCH (04:33)
[2017-10-18 06:32] LABS: BASOPHILS % (AUTO) 0.2 % (0-1); EOSINOPHILS # (AUTO) 0.2 X10'3 (0-0.9); EOSINOPHILS % (AUTO) 2.3 % (0-6); HEMATOCRIT 24.4 % (42.0-52.0); HEMOGLOBIN 8.3 g/dl (14.0-17.9); LYMPHOCYTES # (AUTO) 0.8 X10'3 (1.1-4.8); LYMPHOCYTES % (AUTO) 10.4 % (21-51); MEAN CORPUSCULAR HEMOGLOBIN 30.4 PG (27.0-31.0); MEAN CORPUSCULAR HGB CONC 33.8 % (33.0-36.5); MEAN CORPUSCULAR VOLUME 89.8 FL (78-98); MEAN PLATELET VOLUME 9.9 FL (7.4-10.4); MONOCYTES # (AUTO) 0.6 X10'3 (0-0.9); MONOCYTES % (AUTO) 8.6 % (2-12); NEUTROPHILS # (AUTO) 5.7 X10'3 (1.8-7.7); NEUTROPHILS % (AUTO) 78.5 % (42-75); PLATELET COUNT 85 X10'3 (140-440); RED BLOOD COUNT 2.72 X10'6 (4.70-6.10); RED CELL DISTRIBUTION WIDTH 15.4 % (11.5-14.5); WHITE BLOOD COUNT 7.2 X10'3 (4.5-11.0)
[2017-10-18 06:45] LABS: ALBUMIN 2.5 G/DL (3.4-5.0); ANION GAP 8 (8-16); BLOOD UREA NITROGEN 19 MG/DL (7-18); BUN/CREATININE RATIO 26.4 (5.4-32.0); CALCIUM 7.9 MG/DL (8.5-10.1); CHLORIDE 105 MMOL/L (99-107); CREATININE 0.72 MG/DL (0.60-1.10); GLUCOSE 110 MG/DL (70-104); MAGNESIUM 2.1 MG/DL (1.5-2.4); PHOSPHORUS 2.3 MG/DL (2.3-4.5); POTASSIUM 4.2 MMOL/L (3.5-5.1); SODIUM 139 MMOL/L (135-145); TOTAL CARBON DIOXIDE 26.3 MMOL/L (24-32); eGFR > 90 ML/MIN
[2017-10-18] MEDS: aspirin 325mg tablet, delayed-release (Ecotrin) PO SCH (07:26)
[2017-10-18] MEDS: lactobacillus rhamnosus 10,000 MMU CELLS/CAPSULE PO SCH ×2 (07:26→16:39)
[2017-10-18] MEDS: metoprolol tartrate 12.5mg (1/2 tablet) PO SCH ×2 (07:26→19:48)
[2017-10-18] MEDS: atorvastatin 10mg tablet PO SCH (07:26)
[2017-10-18] MEDS: docusate sod 100mg capsule PO SCH ×2 (07:26→19:48)
[2017-10-18] MEDS: magnesium 2GM in 50ml NS 50 ML IV PRN (07:26)
[2017-10-18] MEDS: pantoprazole 40mg Tablet.DR PO SCH (07:27)
[2017-10-18] MEDS: amiodarone 200mg tablet PO SCH ×2 (07:27→19:48)
[2017-10-18] MEDS: potassium Cl 20mEq/100mL bag 100 ML IV PRN ×2 (08:55→16:38)
[2017-10-18 13:36] LABS: MAGNESIUM 2.4 MG/DL (1.5-2.4); POTASSIUM 4.2 MMOL/L (3.5-5.1)
[2017-10-18] MEDS: Protein Shake (high protein) 240ml (8oz) cup PO SCH ×2 (13:44→18:00)
[2017-10-19] VITALS (12 sets, daily range): BP systolic 95–140; BP diastolic 46–79
[2017-10-19] MEDS: niCARDipine/sod cl 20mg/200ml 200 ML IV SCH ×3 (01:22→08:47)
[2017-10-19 03:38] LABS: PHOSPHORUS 3.1 MG/DL (2.3-4.5); POTASSIUM 4.3 MMOL/L (3.5-5.1)
[2017-10-19 04:50] LABS: BASOPHILS % (AUTO) 0.2 % (0-1); EOSINOPHILS # (AUTO) 0.2 X10'3 (0-0.9); EOSINOPHILS % (AUTO) 2.7 % (0-6); HEMOGLOBIN 7.8 g/dl (14.0-17.9); LYMPHOCYTES # (AUTO) 0.9 X10'3 (1.1-4.8); LYMPHOCYTES % (AUTO) 14.1 % (21-51); MEAN CORPUSCULAR HEMOGLOBIN 30.4 PG (27.0-31.0); MEAN CORPUSCULAR VOLUME 89.4 FL (78-98); MEAN PLATELET VOLUME 9.7 FL (7.4-10.4); MONOCYTES # (AUTO) 0.6 X10'3 (0-0.9); MONOCYTES % (AUTO) 9.1 % (2-12); NEUTROPHILS # (AUTO) 4.6 X10'3 (1.8-7.7); NEUTROPHILS % (AUTO) 73.9 % (42-75); PLATELET COUNT 98 X10'3 (140-440); RED BLOOD COUNT 2.57 X10'6 (4.70-6.10); RED CELL DISTRIBUTION WIDTH 14.6 % (11.5-14.5); WHITE BLOOD COUNT 6.2 X10'3 (4.5-11.0)
[2017-10-19] MEDS: metoprolol tartrate 12.5mg (1/2 tablet) PO SCH (08:44)
[2017-10-19] MEDS: atorvastatin 10mg tablet PO SCH (08:44)
[2017-10-19] MEDS: amiodarone 200mg tablet PO SCH (08:44)
[2017-10-19] MEDS: docusate sod 100mg capsule PO SCH (08:44)
[2017-10-19] MEDS: aspirin 325mg tablet, delayed-release (Ecotrin) PO SCH (08:44)
[2017-10-19] MEDS: lactobacillus rhamnosus 10,000 MMU CELLS/CAPSULE PO SCH (08:44)
[2017-10-19] MEDS: pantoprazole 40mg Tablet.DR PO SCH (08:46)
[2017-10-19] MEDS: Protein Shake (high protein) 240ml (8oz) cup PO SCH (08:47)
== END 2017-10-19 13:55 | DRG 220 ==
LOC: PAS IN 05:31 → EDSTATUS 07:30 → ICU 2S 13:17 → PCU 3S 10-19 11:50
PROVIDERS: ADMIT Thoracic Surgery (Cardiothoracic Vascular Surgery); ATTEND Thoracic Surgery (Cardiothoracic Vascular Surgery)
PROC: 02RF08Z Replacement of Aortic Valve with Zooplastic Tissue, Open Approach (ICD-10-PCS; 2017-10-14)
PROC: 02UG0JZ Supplement Mitral Valve with Synthetic Substitute, Open Approach (ICD-10-PCS; 2017-10-14)
PROC: 021309W Bypass Coronary Artery, Four or More Arteries from Aorta with Autologous Venous Tissue, Open Approach (ICD-10-PCS; 2017-10-14)
PROC: 06BQ4ZZ Excision of Left Saphenous Vein, Percutaneous Endoscopic Approach (ICD-10-PCS; 2017-10-14)
PROC: 02L74CK Occlusion of Left Atrial Appendage with Extraluminal Device, Percutaneous Endoscopic Approach (ICD-10-PCS; 2017-10-14)
PROC: 5A1221Z Performance of Cardiac Output, Continuous (ICD-10-PCS; 2017-10-14)
PROC: B24BZZ4 Ultrasonography of Heart with Aorta, Transesophageal (ICD-10-PCS; 2017-10-14)
PROC: 30233R1 Transfusion of Nonautologous Platelets into Peripheral Vein, Percutaneous Approach (ICD-10-PCS; 2017-10-14)
PROC: 30233M1 Transfusion of Nonautologous Plasma Cryoprecipitate into Peripheral Vein, Percutaneous Approach (ICD-10-PCS; 2017-10-14)
PROC: 06BP4ZZ Excision of Right Saphenous Vein, Percutaneous Endoscopic Approach (ICD-10-PCS; 2017-10-14)
PROC: 02HV33Z Insertion of Infusion Device into Superior Vena Cava, Percutaneous Approach (ICD-10-PCS; 2017-10-14)
PROC: B548ZZA Ultrasonography of Superior Vena Cava, Guidance (ICD-10-PCS; 2017-10-14)
PROC: 02HQ32Z Insertion of Monitoring Device into Right Pulmonary Artery, Percutaneous Approach (ICD-10-PCS; 2017-10-14)
PROC: 4A133B3 Monitoring of Arterial Pressure, Pulmonary, Percutaneous Approach (ICD-10-PCS; 2017-10-14)
PROC: 4A1239Z Monitoring of Cardiac Output, Percutaneous Approach (ICD-10-PCS; 2017-10-14)
PROC: 02100Z9 Bypass Coronary Artery, One Artery from Left Internal Mammary, Open Approach (ICD-10-PCS; principal; 2017-10-14 07:02)
PROC: 30233N1 Transfusion of Nonautologous Red Blood Cells into Peripheral Vein, Percutaneous Approach (ICD-10-PCS; 2017-10-16)
DX: I25.110 Atherosclerotic heart disease of native coronary artery with unstable angina pectoris (principal); I48.0 Paroxysmal atrial fibrillation; I34.0 Nonrheumatic mitral (valve) insufficiency; D62 Acute posthemorrhagic anemia; R94.39 Abnormal result of other cardiovascular function study; I35.2 Nonrheumatic aortic (valve) stenosis with insufficiency; E78.5 Hyperlipidemia, unspecified; I10 Essential (primary) hypertension; J44.9 Chronic obstructive pulmonary disease, unspecified; R33.9 Retention of urine, unspecified; Z88.8 Allergy status to other drugs, medicaments and biological substances; Z87.891 Personal history of nicotine dependence; Z82.49 Family history of ischemic heart disease and other diseases of the circulatory system
CPT/HCPCS: 0232T; 93306; 93312; 93325; 36415; 36600; 71010; 71020; 80048; 80053; 81003; 82330; 82435; 82800; 82803; 82947; 82948; 83036; 83735; 84100; 84132; 84295; 85018; 85025; 85027; 85347; 85384; 85610; 85730; 86885; 86900; 86901; 86920; 87070; 88300; 88305; 93005; 93880; 93970; 94002; 94003; 94010; 94760; 97110; 97116; 97162; 97530; A4353; A6213; A6222; A6255; A6257; A6258; A6402; A6449; A7000; A7048; J0282; J0690; J1265; J1644; J1815; J1940; J2001; J2060; J2150; J2250; J2270; J2370; J2405; J2440; J2704; J2930; J3370; J3475; J3480; J3490; J7030; J7120; P9012; P9016; P9035; P9045; P9047